=== PATIENT | male | born 1950 | race Two or more races ===

== ENCOUNTER 2021-02-10 13:40 | Emergency (ER) | payer OTHER ==
[2021-02-10 13:48] VITALS: BMI 342.0
[2021-02-10] MEDS ORDERED: ASPIRIN 81 MG CHEWABLE TABLETS PO ONE (13:55)
[2021-02-10] MEDS ORDERED: ATORVASTATIN CA 80 MG TABLET (FP) PO ONE (13:55)
[2021-02-10] MEDS ORDERED: ATORVASTATIN CA 80 MG TABLET (FP) ONE (14:03)
[2021-02-10] MEDS ORDERED: ASPIRIN 81 MG CHEWABLE TABLETS ONE (14:03)
[2021-02-10 16:14] VITALS: BP 140/76; PULSE 60; TEMP 98.6
== END 2021-02-10 16:15 | disposition short-term general hospital (02) ==
LOC: JER 13:40
PROC: 3E023NZ Introduction of Analgesics, Hypnotics, Sedatives into Muscle, Percutaneous Approach (ICD-10-PCS; principal; 2021-02-10)
DX: R94.39 Abnormal result of other cardiovascular function study (principal)
CPT/HCPCS: 36415; 78452-TC; 80048; 80061; 80076; 82550; 83036; 83690; 83735; 84443; 84484; 85025; 93005; 93010; 93017; 99284-25; A9502; C1887; C9803; J2785; U0003; U0005